=== PATIENT | female | born 1955 | race Caucasian/White ===

== ENCOUNTER 2017-08-09 14:03 | Outpatient (CLI) | payer MEDICARE ==
[2017-08-09 15:19] LABS: Mean Corpuscular HGB CONC 34.5 g/dL (32.0-36.0); Mean Corpuscular Hemoglobin 33.8 pg (27.0-31.0); Mean Corpuscular Volume 97.8 fl (81.0-99.0); Mean Platelet Volume 7.3 fL (7.4-10.4); Platelet Count 220 thou/uL (130-400); RBC Distribution Width 10.9 % (11.5-14.5); Red Blood Cell (RBC) Count 3.85 mill/uL (4.20-5.40)
[2017-08-09 15:37] LABS: Anion Gap 11 mmol/L (10-20); BUN (Urea Nitrogen) 24 mg/dL (9.8-20.1); Calc. Creatinine Clearance 0 mL/min (70-130); Calcium 10.3 mg/dL (7.8-10.44); Carbon Dioxide 28 mmol/L (23-31); Chloride 102 mmol/L (98-107); Estimated GFR-MDRD 54; Glucose 114 mg/dL (80-115); Potassium 3.8 mmol/L (3.5-5.1); Sodium 137 mmol/L (136-145)
[2017-08-09 15:54] LABS: PTT 28.9 SEC (22.9-36.1)
[2017-08-09 15:58] LABS: Prothrombin Time 13.4 SEC (12.0-14.7)
--- NOTE | 2017-08-22 22:53 | EKG ---
Test Reason : Blood Pressure : / mmHG Vent. Rate : 063 BPM Atrial Rate : 063 BPM P-R Int : 150 ms QRS Dur : 092 ms QT Int : 434 ms P-R-T Axes : 043 043 -08 degrees QTc Int : 444 ms Normal sinus rhythm Low voltage QRS Borderline ECG No previous ECGs available Confirmed by Mino CORONADO ([id number]) on 08/22/2017 10:53:22 PM Referred By: OTILIO Confirmed By:Mino CORONADO
== END 2017-08-09 14:04 | disposition home or self-care (01) ==
LOC: LABBT 14:03
PROVIDERS: ATTEND Orthopaedic Surgery Hand Surgery
DX: Z01.818 Encounter for other preprocedural examination (principal); M72.0 Palmar fascial fibromatosis [Dupuytren]
CPT/HCPCS: 80048; 85027; 85610; 85730; 93005; 93010

== ENCOUNTER 2017-08-17 07:03 | Day surgery (SDC) | payer MEDICARE ==
[2017-08-09 14:28] VITALS: BMI 34.3
[2017-08-17] MEDS ORDERED: Insulin Regular 300 UNITS/3 ML VIAL ONE (08:14)
[2017-08-17] MEDS ORDERED: CEFAZOLIN/Water 2 GM/20 ML SYRINGE ONE (09:02)
--- NOTE | 2017-08-17 09:37 | RAD ---
CHEST 2 VIEWS: Date: 08/17/17 HISTORY: Preop. COMPARISON: 10/10/14. FINDINGS: Cardiac silhouette is upper limits of normal in size. Pulmonary vasculature is unremarkable. Mediasti num is midline. Chronic interstitial opacity at the posterior lung bases on the lateral view is less pronounced than on the prior study and favored to be on the left based on the frontal view. No lobar consolidation, pleural fluid, or pneumothorax are evident. IMPRESSION: Stable radiographic appearance of the chest. POS: [facility]
[2017-08-17] MEDS ORDERED: Fentanyl 100 MCG/2 ML VIAL ONE (10:20)
[2017-08-17] MEDS ORDERED: Bacitracin Zinc Ointment 30 gm TUBE ONE (10:24)
[2017-08-17] MEDS ORDERED: Bupivacaine PF 0.5% 30 ML VIAL ONE (10:24)
[2017-08-17] MEDS ORDERED: Betamet Acet/Betamet Na Ph 30 MG/5 ML VIAL ONE (11:35)
[2017-08-17] MEDS ORDERED: Ketorolac Tromethamine 30 MG/ML VIAL ONE ×2 (12:45→15:55)
[2017-08-17] MEDS ORDERED: Ondansetron HCl/PF 4 MG/2 ML Vial ONE (15:55)
[2017-08-17] MEDS ORDERED: Lidocaine 1% PF 5 ML VIAL ONE (15:55)
[2017-08-17] MEDS ORDERED: ePHEDrine/0.9% NaCl/PF SYRINGE 50 mg/10 ml ONE (15:55)
[2017-08-17] MEDS ORDERED: Propofol 200 MG/20 ML VIAL ONE (15:55)
[2017-08-17] MEDS ORDERED: Dexamethasone 20 MG/5 ML VIAL ONE (15:55)
--- NOTE | 2017-08-17 15:55 | OP ---
DATE OF SURGERY: 08/17/2017 PREOPERATIVE DIAGNOSIS: Left small finger and ring finger severe Dupuytren's contracture. FINDINGS: Severe Dupuytren's contracture with marked malrotation towards the midline of the radial a nd ulnar digital nerves of the small finger. PROCEDURE PERFORMED: 1. Neuroplasty, small finger radial digital nerve. 2. Neuroplasty, small finger ulnar digital nerve, both on the magnification and microscopic. 3. Subtotal palmar fascia of small finger and ring finger palmar. TOURNIQUET TIME: 37 minutes. ESTIMATED BLOOD LOSS: Less than 10 mL. FINDINGS: Six degree small finger PIP joint contracture with the contracture across in the proximal phalangeal joint to the base of the middle phalanx. INDICATION: The patient had progressive loss of extension with the flexion deformity as described ab xiange and a Dupuytren's cord that was thick. DESCRIPTION OF PROCEDURE: After successful general LMA technique, the limb prepped and drape. Time out was done appropriately. The patient then had a documentation that she is on beta-blockers. The patient had the incision outlined. After evaluating the incision, a zigzag incision was made usi ng Gertrudis's line to 0.2 mm distal to the cord and approximately 5 mm proximal. This was carried thr ough the skin and subcutaneous tissue until we cord from the underlying skin, which was marline y tight, visualized the ulnar and radial digital nerve, then performed neuroplasty under magnificatio n to a point 5 mm distal to the cord. This took some time and involved removal of some , but th e transverse septum caused cords. We then completely the median and ulnar digital nerves to the small finger and visualized a nd tagged ulnar digital nerve to ring finger and protected them. We protected the neurovascular bund le. We lifted out the cord by it with a [place] blade and then it was complete. We released the tourniquet and placed Cel[place] on the wound. We closed the wound with interrupted 4 -0 nylon in a simple pattern. The patient then had a bulky dressing applied with splint after inject ing a total of 30 mL of 0.5% Marcaine without complication. The specimen was sent to the lab.
== END 2017-08-17 15:20 | disposition home or self-care (01) ==
LOC: SDC 07:03
PROVIDERS: ATTEND Orthopaedic Surgery Hand Surgery
PROC: 0JNK0ZZ Release Left Hand Subcutaneous Tissue and Fascia, Open Approach (ICD-10-PCS; principal; 2017-08-17)
PROC: 01N60ZZ Release Radial Nerve, Open Approach (ICD-10-PCS; 2017-08-17)
PROC: 01N40ZZ Release Ulnar Nerve, Open Approach (ICD-10-PCS; 2017-08-17)
DX: M72.0 Palmar fascial fibromatosis [Dupuytren] (principal); Z88.5 Allergy status to narcotic agent
CPT/HCPCS: 36416; 71046; J0131; J0702; J1100; J1815; J1885; J2001; J2405; J2704; J3010; S0020

== ENCOUNTER 2019-03-14 00:53 | Emergency (ER) | payer MEDICARE ==
[2019-03-14 01:26] LABS: #Eosinphils 0.4 thou/uL (0.0-0.7); #Lymphocytes 2.4 thou/uL (1.20-3.40); #Monocytes 0.9 thou/uL (0.11-0.59); %Basophils 0.3 % (0.0-1.0); %Eosinophils 3.8 % (0.0-10.0); %Lymphocytes 24.7 % (21.0-51.0); %Monocytes 9.1 % (0.0-10.0); %Neutrophils 62.2 % (42.0-75.0); Hemoglobin 11.9 g/dL (12.0-16.0); Mean Corpuscular HGB CONC 32.6 g/dL (32.0-36.0); Mean Platelet Volume 8.1 fL (7.4-10.4); Platelet Count 180 thou/uL (130-400); RBC Distribution Width 10.9 % (11.5-14.5); White Blood Cell (WBC) Count 9.7 thou/uL (4.8-10.8)
[2019-03-14 01:44] LABS: ALT (SGPT) 10 U/L (8-55); AST (SGOT) 13 U/L (5-34); Albumin 3.8 g/dL (3.4-4.8); Alkaline Phosphatase 86 U/L (40-110); Anion Gap 16 mmol/L (10-20); BUN (Urea Nitrogen) 23 mg/dL (9.8-20.1); Bilirubin, Total 0.4 mg/dL (0.2-1.2); Calc. Creatinine Clearance 0 mL/min (70-130); Carbon Dioxide 24 mmol/L (23-31); Chloride 103 mmol/L (98-107); Estimated GFR-MDRD 45; Globulin 3.5 g/dL (2.4-3.5); Glucose 154 mg/dL (80-115); Lipase 7 U/L (8-78); Potassium 3.7 mmol/L (3.5-5.1); Protein, Total 7.3 g/dL (6.0-8.3); Sodium 139 mmol/L (136-145)
[2019-03-14 01:47] LABS: Acetaminophen Less than 6.0 mcg/mL (10.0-30.0); Alcohol Less than 10 mg/dL (Less than 10); Salicylate Less than 8.0 mg/dL (15.0-30.0)
[2019-03-14 02:37] LABS: Bilirubin Negative (Negative); Blood, Urine Negative (Negative); Clarity Clear (Clear); Glucose, Urine (Dipstick) 70 mg/dL (Negative); Leukocyte Negative Leu/uL (Negative); Nitrite Negative (Negative); Protein, Urine (Dipstick) Negative (Neg-Trace); Urobilinogen Normal mg/dL (Less than 2)
== END 2019-03-14 03:52 | disposition home or self-care (01) ==
LOC: ERS 00:53
DX: E11.649 Type 2 diabetes mellitus with hypoglycemia without coma (principal); K04.7 Periapical abscess without sinus; I10 Essential (primary) hypertension; E78.5 Hyperlipidemia, unspecified; E11.40 Type 2 diabetes mellitus with diabetic neuropathy, unspecified; Z79.2 Long term (current) use of antibiotics; Z79.899 Other long term (current) drug therapy; Z79.4 Long term (current) use of insulin
CPT/HCPCS: 36415; 36416; 80053; 80307; 81003; 82140; 83605; 83690; 84443; 85025; 87040; 93005

== ENCOUNTER 2019-11-24 07:45 | Emergency (ER) | payer MEDICARE ==
[2019-11-24] MEDS ORDERED: Adacel (T-DAP) 0.5 ML SYRINGE ONE (08:30)
[2019-11-24] MEDS ORDERED: Fentanyl 100 MCG/2 ML VIAL ONE (08:30)
--- NOTE | 2019-11-24 08:36 | RAD ---
EXAM: 2 views of the left shoulder HISTORY: Fall with left shoulder pain COMPARISON: None FINDINGS: There is a fracture of the left proximal humerus which involves the head and likely neck of the humerus. There is a high riding humeral head. No degenerative changes are seen. The visualized thorax is unremarkable. IMPRESSION: Left proximal humerus fracture
--- NOTE | 2019-11-24 08:37 | RAD ---
EXAM: 2 views of the left humerus HISTORY: left arm pain after fall COMPARISON: None FINDINGS: 2 views of the left humerus shows a fracture of the left humeral neck which extends up to t he humeral head. No dislocation is seen. No degenerative changes are seen. No soft tissue swelling is present. IMPRESSION: Left proximal humerus fracture
[2019-11-24] MEDS ORDERED: Bacitracin 1 PK ONE (09:48)
== END 2019-11-24 10:35 | disposition home or self-care (01) ==
LOC: ERS 07:45
DX: S42.202A Unspecified fracture of upper end of left humerus, initial encounter for closed fracture (principal); S50.311A Abrasion of right elbow, initial encounter; S80.211A Abrasion, right knee, initial encounter; E11.9 Type 2 diabetes mellitus without complications; I10 Essential (primary) hypertension; E78.5 Hyperlipidemia, unspecified; S80.812A Abrasion, left lower leg, initial encounter; W01.0XXA Fall on same level from slipping, tripping and stumbling without subsequent striking against object, initial encounter
CPT/HCPCS: 90471; 90715; 96374; J3010

== ENCOUNTER 2021-12-29 12:07 | Inpatient (IN) | payer MEDICARE ==
[~2021-12-29 12:07] MED LIST: Iopamidol-370 76% 500 ML 1 ML ONE
[2021-12-29 12:59] LABS: #Basophils 0.1 thou/uL (0.0-0.2); #Eosinphils 0.3 thou/uL (0.0-0.7); #Lymphocytes 3.5 thou/uL (1.20-3.40); #Monocytes 0.7 thou/uL (0.11-0.59); #Neutrophils 5.5 thou/uL (1.40-6.50); %Basophils 0.5 % (0.0-1.0); %Eosinophils 2.9 % (0.0-10.0); %Lymphocytes 34.7 % (21.0-51.0); %Monocytes 6.5 % (0.0-10.0); %Neutrophils 55.5 % (42.0-75.0); Hemoglobin 13.2 g/dL (12.0-16.0); Mean Corpuscular HGB CONC 33.8 g/dL (32.0-36.0); Mean Corpuscular Hemoglobin 34.3 pg (27.0-31.0); Mean Platelet Volume 7.9 fL (7.4-10.4); Platelet Count 203 thou/uL (130-400); RBC Distribution Width 10.7 % (11.5-14.5); Red Blood Cell (RBC) Count 3.86 mill/uL (4.20-5.40)
[2021-12-29 13:47] LABS: ALT (SGPT) Less than 7 U/L (8-55); AST (SGOT) 14 U/L (5-34); Alkaline Phosphatase 104 U/L (40-110); Anion Gap 14 mmol/L (10-20); BUN (Urea Nitrogen) 23 mg/dL (9.8-20.1); Bilirubin, Total 0.5 mg/dL (0.2-1.2); Calc. Creatinine Clearance 0 mL/min (70-130); Calcium 9.4 mg/dL (7.8-10.44); Carbon Dioxide 25 mmol/L (23-31); Chloride 105 mmol/L (98-107); Estimated GFR 64; Globulin 3.7 g/dL (2.4-3.5); Glucose 88 mg/dL (80-115); Potassium 4.3 mmol/L (3.5-5.1); Protein, Total 7.7 g/dL (5.8-8.1); Sodium 140 mmol/L (136-145)
[2021-12-29] MEDS ORDERED: Ondansetron ODT 4 MG TAB SL PRN (15:10)
[2021-12-29] MEDS ORDERED: Acetaminophen 325 MG TAB PO PRN (15:10)
[2021-12-29] MEDS ORDERED: Ondansetron PF 4 MG/2 ML Vial IVP PRN (15:10)
[2021-12-29] MEDS ORDERED: hydrALAZINE 20 MG/ML VIAL SLOW IVP PRN (16:06)
[2021-12-29 18:11] LABS: SARS-CoV-2 NAA Rapid Test Not Detected (NotDetected)
[2021-12-29 20:15] VITALS: BMI 36.2
[2021-12-29] MEDS ORDERED: Atorvastatin Calcium 10 MG TAB PO SCH (21:00)
[2021-12-29] MEDS: Gabapentin 300 MG CAP PO SCH (21:35)
[2021-12-29] MEDS: Atorvastatin Calcium 40 MG TAB PO SCH (21:35)
[2021-12-29] MEDS: traMADol HCl 50 MG TAB PO SCH (21:36)
[2021-12-30 05:24] LABS: Cardiac Risk 2.7 (Less than 4.5)
[2021-12-30] MEDS ORDERED: Dextrose 50% Abboject 50 ML SYRINGE IVP PRN (06:15)
[2021-12-30] MEDS ORDERED: Dextrose 5% in Water 1,000 ML IV PRN (06:15)
[2021-12-30] MEDS: HumaLOG 300 UNITS/3 ML VIAL SC PRN ×2 (06:49→14:06)
[2021-12-30] MEDS ORDERED: Non-Formulary Item 1 EACH (Enalapril Maleate [Enalapril Maleate] 20 MG Tablet) PO SCH (09:00)
[2021-12-30] MEDS ORDERED: Metoprolol Tartrate 100 MG TAB PO SCH (09:00)
[2021-12-30] MEDS: Metoprolol Tartrate 50 MG TAB PO SCH ×2 (09:06→21:16)
[2021-12-30] MEDS: Lisinopril 20 MG TAB PO SCH (09:06)
[2021-12-30] MEDS: Aspirin 81 mg Enteric Coated Tablet PO SCH (09:06)
[2021-12-30] MEDS: Amlodipine 5 MG TAB PO SCH (09:06)
[2021-12-30] MEDS: HumuLIN 70/30 (300 UNITS/3 ML VIAL) SC SCH ×2 (09:41→21:17)
[2021-12-30] MEDS: traMADol HCl 50 MG TAB PO SCH (21:16)
[2021-12-30] MEDS: Atorvastatin Calcium 40 MG TAB PO SCH (21:16)
[2021-12-30] MEDS: Gabapentin 300 MG CAP PO SCH (21:16)
[2021-12-31] MEDS: Aspirin 81 mg Enteric Coated Tablet PO SCH (09:07)
[2021-12-31] MEDS: Lisinopril 20 MG TAB PO SCH (09:07)
[2021-12-31] MEDS: Amlodipine 5 MG TAB PO SCH (09:07)
[2021-12-31] MEDS: Metoprolol Tartrate 50 MG TAB PO SCH (09:07)
[2021-12-31] MEDS: HumuLIN 70/30 (300 UNITS/3 ML VIAL) SC SCH (09:08)
[2021-12-31 11:39] VITALS: BP 111/91; TEMP 98.1
== END 2021-12-31 13:38 | disposition home or self-care (01) | DRG 65 ==
LOC: ERS 12:07 → NEURO 18:22 → OBSVTOIN 12-30 12:34
PROVIDERS: ADMIT Hospitalist; ATTEND Student in an Organized Health Care Education/Training Program
DX: I63.9 Cerebral infarction, unspecified (principal); H34.9 Unspecified retinal vascular occlusion; I10 Essential (primary) hypertension; E11.9 Type 2 diabetes mellitus without complications; K21.9 Gastro-esophageal reflux disease without esophagitis; E78.5 Hyperlipidemia, unspecified; E11.42 Type 2 diabetes mellitus with diabetic polyneuropathy; E11.319 Type 2 diabetes mellitus with unspecified diabetic retinopathy without macular edema; I08.1 Rheumatic disorders of both mitral and tricuspid valves; Z20.822 Contact with and (suspected) exposure to COVID-19; Z88.5 Allergy status to narcotic agent; Z79.4 Long term (current) use of insulin; Z79.899 Other long term (current) drug therapy
CPT/HCPCS: 36415; 36416; 70450; 70496; 70498; 70551; 80053; 80061; 84484; 85025; 93005; 93306; 94760; G0378; J1815; Q9967; U0002

== ENCOUNTER 2023-02-01 12:12 | Outpatient (CLI) | payer MEDICARE | END 2023-02-01 12:13 | disposition home or self-care (01) | LOC: BICULT 12:12 | PROVIDERS: ATTEND Internal Medicine | DX: R09.89 Other specified symptoms and signs involving the circulatory and respiratory systems (principal) | CPT/HCPCS: 93880 ==

== ENCOUNTER 2024-06-21 20:18 | Inpatient (IN) | payer MEDICARE ==
[2024-06-21] MEDS ORDERED: Ondansetron ODT 4 MG TAB PO PRN (22:48)
[2024-06-21] MEDS ORDERED: Calcium Carbonate 500 MG ChewTAB PO PRN (22:48)
[2024-06-21] MEDS ORDERED: Ondansetron PF 4 MG/2 ML Vial IVP PRN (22:48)
[2024-06-21] MEDS ORDERED: Acetaminophen 650 MG Suppository PR PRN (22:48)
[2024-06-21] MEDS ORDERED: Acetaminophen 325 MG TAB PO PRN (22:48)
[2024-06-21] MEDS ORDERED: Insulin Lispro 100 UNIT/ML 10 ML VIAL SC PRN (22:51)
[2024-06-21] MEDS ORDERED: Dextrose 5% in Water 1,000 ML IV PRN (22:51)
[2024-06-21] MEDS ORDERED: Glucagon 1 MG/ML KIT IM PRN (22:51)
[2024-06-21] MEDS ORDERED: Dextrose 50% Abboject 50 ML SYRINGE SLOW IVP PRN (22:51)
[2024-06-21] MEDS: Gabapentin 300 MG CAP PO SCH (23:20)
[2024-06-22 06:05] LABS: #Basophils 0.04 10x3/uL (0.0-0.2); %Basophils 0.5 % (0.0-1.0); %Eosinophils 4.3 % (0.0-10.0); %Lymphocytes 29.6 % (21.0-51.0); %Monocytes 9.4 % (0.0-10.0); %Neutrophils 55.9 % (42.0-75.0); Hematocrit 30.2 % (36.0-47.0); Mean Corpuscular HGB CONC 33.1 g/dL (32.0-36.0); Mean Corpuscular Hemoglobin 33.7 pg (27.0-31.0); Mean Corpuscular Volume 101.7 fL (78.0-98.0); Mean Platelet Volume 9.9 fL (7.4-10.4); Platelet Count 167 10x3/uL (130-400); RBC Distribution Width 12.1 % (11.5-14.5); Red Blood Cell (RBC) Count 2.97 mill/uL (4.20-5.40)
[2024-06-22 06:29] LABS: ALT (SGPT) Less than 7 U/L (Less than 34); AST (SGOT) 14 U/L (11-34); Albumin 3.1 g/dL (3.1-4.5); Alkaline Phosphatase 96 U/L (40-110); Anion Gap 10 mmol/L (10-20); BUN (Urea Nitrogen) 13 mg/dL (9.8-20.1); Bilirubin, Total 0.5 mg/dL (0.3-1.2); Calc. Creatinine Clearance 73 mL/min (70-130); Calcium 8.5 mg/dL (7.8-10.44); Carbon Dioxide 28 mmol/L (23-31); Chloride 106 mmol/L (98-107); Estimated GFR 56; Globulin 3.4 g/dL (2.4-3.5); Glucose 131 mg/dL (80-115); Magnesium 1.8 mg/dL (1.6-2.6); Potassium 4.1 mmol/L (3.5-5.1); Protein, Total 6.5 g/dL (5.8-8.1); Sodium 140 mmol/L (136-145)
[2024-06-22] MEDS: Famotidine 20 MG TAB PO SCH (09:58)
[2024-06-22] MEDS: Famotidine/PF 20 mg/2ml Vial SLOW IVP SCH (09:58)
[2024-06-22] MEDS: Saxagliptin 2.5 MG TAB PO SCH (09:58)
[2024-06-22] MEDS: Aspirin 81 mg Enteric Coated Tablet PO SCH (09:58)
[2024-06-22] MEDS: Furosemide 40 MG (4 mL) VIAL SLOW IVP SCH (09:59)
[2024-06-22] MEDS: Amlodipine 5 MG TAB PO SCH (09:59)
[2024-06-22] MEDS: Lisinopril 20 MG TAB PO SCH (09:59)
[2024-06-22] MEDS: FLU (Fluad Triv) TS24-25 (65UP)/MF59C/PF 45 MCG/0.5 ML Syringe IM ONE (10:00)
[2024-06-22] MEDS: Insulin Glargine 30 UNITS/0.3 ML VIAL SC SCH (10:10)
[2024-06-22] MEDS: Insulin Lispro 100 UNIT/ML 10 ML VIAL SC PRN (11:47)
[2024-06-22 16:40] LABS: Amphetamine Not Detected (NotDetected); Barbiturates Screen Not Detected (NotDetected); Benzodiazepine Screen Not Detected (NotDetected); Cocaine Metabolite Screen Not Detected (NotDetected); Methadone Not Detected (NotDetected); Methamphetamine Not Detected (NotDetected); Opiate Screen Not Detected (NotDetected); Oxycodone Screen Not Detected (NotDetected); Phencyclidine (PCP) Not Detected (NotDetected); THC/Cannabinoid Screen Not Detected (NotDetected); Tricyclic Screen Not Detected (NotDetected)
[2024-06-22] MEDS: Gabapentin 300 MG CAP PO SCH (20:39)
[2024-06-22] MEDS: Atorvastatin Calcium 40 MG TAB PO SCH (20:40)
[2024-06-22] MEDS: traZODone HCl 50 MG TAB PO SCH (21:15)
[2024-06-23 07:12] LABS: #Basophils 0.05 10x3/uL (0.0-0.2); %Basophils 0.7 % (0.0-1.0); %Eosinophils 4.6 % (0.0-10.0); %Lymphocytes 30.6 % (21.0-51.0); Hematocrit 33.7 % (36.0-47.0); Hemoglobin 11.6 g/dL (12.0-16.0); Mean Corpuscular HGB CONC 34.4 g/dL (32.0-36.0); Mean Corpuscular Hemoglobin 33.7 pg (27.0-31.0); Mean Platelet Volume 10.1 fL (7.4-10.4); Platelet Count 182 10x3/uL (130-400); Red Blood Cell (RBC) Count 3.44 mill/uL (4.20-5.40)
[2024-06-23 07:36] LABS: Hemoglobin A1c 8.2 % (4.0-6.0)
[2024-06-23 07:45] LABS: Anion Gap 13 mmol/L (10-20); BUN (Urea Nitrogen) 17 mg/dL (9.8-20.1); Calc. Creatinine Clearance 72 mL/min (70-130); Carbon Dioxide 28 mmol/L (23-31); Chloride 103 mmol/L (98-107); Estimated GFR 57; Glucose 153 mg/dL (80-115); Magnesium 1.8 mg/dL (1.6-2.6); Sodium 140 mmol/L (136-145)
[2024-06-23] MEDS: Enoxaparin 40 MG (0.4 mL) SYRINGE SC SCH (08:35)
[2024-06-24 05:37] VITALS: BMI 33.6
[2024-06-24 05:51] LABS: #Basophils 0.05 10x3/uL (0.0-0.2); %Basophils 0.7 % (0.0-1.0); %Eosinophils 4.6 % (0.0-10.0); %Lymphocytes 33.7 % (21.0-51.0); %Monocytes 10.3 % (0.0-10.0); %Neutrophils 50.3 % (42.0-75.0); Hemoglobin 10.7 g/dL (12.0-16.0); Mean Corpuscular HGB CONC 33.4 g/dL (32.0-36.0); Mean Corpuscular Volume 98.8 fL (78.0-98.0); Platelet Count 190 10x3/uL (130-400); RBC Distribution Width 11.9 % (11.5-14.5); Red Blood Cell (RBC) Count 3.24 mill/uL (4.20-5.40)
[2024-06-24 06:09] LABS: Anion Gap 13 mmol/L (10-20); BUN (Urea Nitrogen) 23 mg/dL (9.8-20.1); Calc. Creatinine Clearance 64 mL/min (70-130); Calcium 8.8 mg/dL (7.8-10.44); Carbon Dioxide 29 mmol/L (23-31); Chloride 100 mmol/L (98-107); Estimated GFR 50; Glucose 234 mg/dL (80-115); Magnesium 1.8 mg/dL (1.6-2.6); Potassium 4.2 mmol/L (3.5-5.1); Sodium 138 mmol/L (136-145)
[2024-06-24 11:47] VITALS: TEMP 97.9
[2024-06-24] MEDS: Insulin Lispro 100 UNIT/ML 10 ML VIAL SC PRN (12:53)
[2024-06-24 15:55] VITALS: BP 142/65
[2024-06-24] MEDS: Carvedilol 3.125 MG TAB PO SCH (16:20)
[2024-06-24] MEDS ORDERED: Insulin Glargine 30 UNITS/0.3 ML VIAL SC SCH (21:00)
== END 2024-06-24 16:48 | disposition home or self-care (01) | DRG 291 ==
LOC: OBS 20:18 → OBSVTOIN 06-22 13:09
PROVIDERS: ADMIT Internal Medicine; ATTEND Internal Medicine
DX: I11.0 Hypertensive heart disease with heart failure (principal); I50.33 Acute on chronic diastolic (congestive) heart failure; Z88.8 Allergy status to other drugs, medicaments and biological substances; E78.5 Hyperlipidemia, unspecified; Z90.89 Acquired absence of other organs; Z90.49 Acquired absence of other specified parts of digestive tract; Z98.49 Cataract extraction status, unspecified eye; Z98.890 Other specified postprocedural states; I95.1 Orthostatic hypotension; E11.65 Type 2 diabetes mellitus with hyperglycemia; Z79.4 Long term (current) use of insulin; Z79.899 Other long term (current) drug therapy
CPT/HCPCS: 36415; 36416; 70450; 70551; 80048; 80053; 80306; 80307; 83036; 83735; 83880; 84443; 85025; 93306; 96374; G0378; J1650; J1815; J1940